=== PATIENT | female | born 1955 | race African-American/Black ===

== ENCOUNTER 2016-12-10 17:52 | Emergency (ER) | payer OTHER, MEDICARE ==
[~2016-12-10] VITALS: Ht 167.6 cm; Wt 83.0 kg
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
== END 2016-12-10 19:59 | disposition home or self-care (01) ==
LOC: CFTX 17:52 → CED 17:52 → CFTX 19:03
DX: S80.01XA Contusion of right knee, initial encounter (principal); I10 Essential (primary) hypertension; V49.50XA Passenger injured in collision with unspecified motor vehicles in traffic accident, initial encounter
CPT/HCPCS: 73562; 99283